=== PATIENT | male | born 1940 | race Caucasian/White ===

== ENCOUNTER 2016-06-25 19:15 | Inpatient (IN) | payer OTHER ==
--- NOTE | ~2016-06-25 | DS ---
Unit #: [id number] #: [id number] Patient: SHERIN PUGH [id number] [address] [address] [id number] I MR#: [id number] NAME: SHERIN PUGH. ROOM: 578 Age: 75 Sex: M Admission Date: 06/25/2016 : 1940 Discharge Date: 06/26/2016 Attending Physician: Stanley Joseph M.D. Primary Care Physician: No Primary Care Physician DISCHARGE SUMMARY SHORT STAY SUMMARY DISCHARGE DIAGNOSES 1. Acute exacerbation of chronic obstructive pulmonary disease. 2. Tachycardia secondary to number one. 3. Chronic respiratory failure with oxygen at home. 4. Hyperlipidemia. 5. Benign prostatic hypertrophy. DISCHARGE MEDICATIONS 1. Advair 250 mcg one puff twice a day. 2. DuoNeb mini neb as needed. 3. ProAir inhaler as needed. 4. Flomax 0.4 mg a day. 5. Pravachol 20 mg at bedtime. 6. Aspirin 81 mg a day. 7. Prednisone 40 mg a day for five days. 8. Zithromax 250 mg a day for four more days. DIET As tolerated. ACTIVITY Oxygen 24 hours a day which he has at home. DESCRIPTION OF HOSPITALIZATION The patient is a 75-year-old gentleman who was at Dr. West' office for routine checkup and was found to be tachycardiac. He did note that two days prior to admission he had mowed his grass and had increasing mucopurulent sputum production. There was no chest pain, fever or hemoptysis. He denied any wheezing. He does have shortness of breath, primarily dyspnea on exertion, which he thinks is fairly stable, and he denies chest pain. He feels much better and now is actually asking for discharge. PAST MEDICAL HISTORY COPD, chronic respiratory failure, hyperlipidemia, benign prostatic hypertrophy. He denies any heart disease whatsoever. SOCIAL HISTORY He quit smoking approximately 10 years ago. FAMILY HISTORY No familial lung disease. Unit #: [id number] #: [id number] Patient: SHERIN PUGH ALLERGIES No known medical allergies. MEDICATIONS As above. REVIEW OF SYSTEMS He is better. He really denies any acute pulmonary symptoms. His sputum has resolved. He denies chest pain, palpitations, never noticed any tachycardia. No abdominal pain, melena, hematochezia, trouble swallowing. No hematuria, dysuria, focal weakness, paraesthesias, leg pain, swelling, fever, chills, weight loss. Further review of systems negative. PHYSICAL EXAMINATION GENERAL APPEARANCE: Reveals a patient who is comfortable on his home level of oxygen. He is afebrile. VITAL SIGNS: Pulse is 100 when I examined him. It has ranged from 102 to 113. Respiratory rate 14. Blood pressure 144/86. Height 5'6". Weight 128 lb. HEENT: Pupils equal, round, and reactive to light. Sclerae anicteric. Head: Atraumatic. NECK: Supple. No supraclavicular or cervical adenopathy appreciated. CHEST: Rare wheeze. No consolidation. Decreased breath sounds. CARDIAC: Regular rate and rhythm. When I examined him, his pulse was approximately 95. No murmur. ABDOMEN: Soft, nontender. No hepatomegaly or rebound. EXTREMITIES: No clubbing, cyanosis or edema. No calf tenderness. SKIN: Warm and dry without rash or diaphoresis. NEUROLOGIC: Grossly intact. No focal muscle or sensory deficits. DIAGNOSTIC STUDIES LABORATORY: Arterial blood gas not performed. He had a normal CMP. His BNP was 36. Lactic acid was normal at one. INR normal. Cardiac enzymes normal. CBC normal. Urinalysis: Glucosuria, otherwise, unremarkable. Blood cultures are pending. Sputum does show gram-positive cocci pairs, gram-positive cocci in clusters and a few gram-negative rods. He has clinically responded to Zithromax. IMAGING: Chest x-ray: Emphysema. No acute infiltrates. CARDIOVASCULAR: EKG: Sinus tachycardia at 105, one PVC, no acute ischemic changes. IMPRESSION 1. Acute exacerbation of COPD. 2. Tachycardia secondary to number one and increased beta agonist use. 3. Chronic respiratory failure, possibly some mild acute component as saturations were listed at 89% on four liters. He is usually on three liters at home. 4. Hyperlipidemia. 5. Benign prostatic hypertrophy. PLAN Basically, as above. He has received treatment. He actually is asking for discharge. He will be discharged later today if stable. We will ensure that he is on his home level of oxygen. He will be followed up in the office in two weeks by our nurse practitioner and Dr. West in three Unit #: [id number] #: [id number] Patient: SHERIN PUGH to four weeks or as scheduled. Certainly, if tachycardia persists after this exacerbation, he may need further evaluation such as thyroid function, echocardiogram, etc. Dictated by... Yee Purcell TD: 06/26/2016 09:46 JOB #: [id number] CC: Kaz West M.D. DISCHARGE SUMMARY Page 1 of 1 X Stanley Joseph MD X DISCHARGE SUMMARY
--- NOTE | ~2016-06-25 | EKG ---
PATIENT: SHERIN PUGH UNIT #: [id number] Ventricular Rate: 105 BPM Atrial Rate: 105 BPM P-R Interval: 174 ms QRS Duration: 86 ms Q-T Interval: 332 ms QTC Calculation(Bezet): 438 ms P [place]: 28 degrees Calculated R [place]: -68 degrees Calculated T [place]: 57 degrees Diagnosis Line: Sinus tachycardia with occasional Premature Diagnosis Line: ventricular complexes Diagnosis Line: Left axis deviation Diagnosis Line: Pulmonary disease pattern Diagnosis Line: Abnormal ECG Diagnosis Line: When compared with ECG of 16-FEB-2015 17:03, Diagnosis Line: Premature ventricular complexes are now Present Diagnosis Line: Criteria for Inferior infarct are no longer Diagnosis Line: Present Diagnosis Line: Confirmed by YOSEPH PARIKH MD ([id number]) on 06/28/2016 Diagnosis Line: 4:00:40 PM INTERPRETING MD: JL HAMMONDS
--- NOTE | ~2016-06-25 | CR72 ---
[facility] A Service of [facility] RADIOLOGY TEXT RESULTS PATIENT: SHERIN PUGH LOCATION: [facility] 578-01 : 41 UNIT #: [id number] AGE: [address]: Stanley Joseph MD SEX: M ORDER DR: [id number] [facility] [address] [facility] [place], [place] [address] [id number] MR#: [id number] Acc #: [id number] NAME: SHERIN PUGH. : 1940 SEX: M STUDY DATE/TIME: 06/25/2016 18:24 UNIT: ARNULFO ROOM: STUDY DESCRIPTION: CR Chest Single View Portable Attending Physician: Yaron Meza M.D. Ordering Physician: Yaron Meza M.D. MEDICAL IMAGING REPORT This report is preliminary unless electronic signature is present EXAM AP radiograph of the chest 06/25/2016 HISTORY Shortness of air, duration today. TECHNIQUE AP radiograph of the chest is presented. COMPARISON STUDIES 01/02/2016. FINDINGS No acute appearing bony abnormality. Heart, mediastinum normal in size and contour. Marked hyperinflation of the lungs consistent with underlying COPD. Coarse linear densities in the mid- to lower lung zones bilaterally, most pronounced at the lung bases, likely reflect underlying emphysematous change and fibrotic change. There is no compelling evidence of superimposed acute infectious or inflammatory disease, pleural effusion or pneumothorax. There is no suspicious nodule. Calcified granuloma in the right lower lung zone is unchanged. Dictated by... Nash Feng M.D. THIS IS AN ELECTRONICALLY VERIFIED REPORT Nash Feng M.D. at 06/26/2016 6:48 PM RICKI/sumaya TD: 06/25/2016 22:02 JOB #: [id number] [facility] A Service [facility] RADIOLOGY TEXT RESULTS PATIENT: SHERIN PUGH LOCATION: [facility] 578-01 : 41 UNIT #: [id number] AGE: [address]: Stanley Joseph MD SEX: M ORDER DR: MEDICAL IMAGING REPORT Page 1 of 1 COPY
[2016-06-25 18:41] LABS: BASOPHIL# 0.1 X10e3 (0-0.3); EOSINOPHIL# 0.6 X10e3 (0-0.7); EOSINOPHIL% 7.4 % (0.0-7.0); HEMATOCRIT 44.3 % (38.0-50.0); HEMOGLOBIN 14.3 gm/dL (13.0-16.0); LYMPHOCYTE# 1.8 X10e3 (1.0-3.5); LYMPHOCYTE% 23.8 % (17.0-45.0); MEAN CELL VOLUME 91.4 FL (83-96); MEAN CORPUSCULAR HEMOGLOBIN 29.5 PG (28-34); MEAN CORPUSCULAR HGB CONC 32.2 g/dL (30-36); MEAN PLATELET VOLUME 9.9 FL (6.5-11.5); MONOCYTE# 0.7 X10e3 (0-1.0); MONOCYTE% 8.9 % (3.0-12.0); NEUTROPHIL# 4.5 X10e3 (1.5-7.1); NEUTROPHIL% 58.9 % (40-75); PLATELET COUNT 143 X10e3 (140-420); RED BLOOD COUNT 4.85 X10e (3.90-5.60); RED CELL DISTRIBUTION WIDTH 14.9 % (11.0-15.5); WHITE BLOOD COUNT 7.6 X10e3 (4.0-10.5)
[2016-06-25 18:41] LABS: POC - CKMB 2.5 ng/mL (0.0-7.9); POC - TROPONIN <0.05 ng/mL (<=0.05)
[2016-06-25 18:45] LABS: DIFF IND NO
[2016-06-25 18:49] LABS: PARTIAL THROMBOPLASTIN TIME 28.6 SECONDS (23.5-31.3); PROTHROMBIN TIME (PATIENT) 10.6 SECONDS (9.6-11.5)
[2016-06-25 19:04] LABS: BILIRUBIN, DIRECT 0.1 mg/dL (0.0-0.2); BILIRUBIN,INDIRECT 0.7 mg/dL (0.0-0.9); BILIRUBIN,TOTAL 0.8 mg/dL (0.2-2.0); BUN/CREATININE RATIO 17.5; CALCIUM SERUM 9.1 mg/dL (8.4-10.2); CREATININE SERUM 0.8 mg/dL (0.6-1.4); PHOSPHOROUS 2.9 mg/dL (2.5-4.6); POTASSIUM 3.7 mmol/L (3.5-5.1); PROTEIN TOTAL SERUM 7.3 g/dL (6.0-8.3)
[~2016-06-25 19:15] MED LIST: ADVAIR 250-501 EAC1 INH; BAYER CHEWABLE81 MG PO; BREO ELLIPTA I1 EACH INH; CIPRO PO; COLACE PO; COMBIVENT U/D3 M2 INH; DILTIAZEM HCL120 MG PO; FLOMAX0.4 M1 PO; IPRAT-ALBUT 0.5-3 ML INH; LEVAQUIN750 MG PO; LORTAB 5-325 M1 EACH PO; MIRALAX17 G2 PO; OXYGEN; PRAVACHOL20 MG PO; PREDNISONE10 MG PO; PREDNISONE10 MG/DOSE PO; PROAIR HFA8.5 GM INH; ST. JOSEPH ASPI81 M2 PO; SYMBICORT INH; TYLENOL325 M1 PO
[2016-06-25 20:37] LABS: POC - CKMB 1.8 ng/mL (0.0-7.9); POC - TROPONIN <0.05 ng/mL (<=0.05)
[2016-06-26 06:40] LABS: URINE SOURCE CLEAN CATCH
[2016-06-26 06:50] LABS: URINE APPEARANCE CLEAR; URINE BILIRUBIN NEG (NEG); URINE BLOOD NEG (NEG); URINE COLOR YELLOW; URINE GLUCOSE >1000 MG/DL (NEG); URINE KETONE 1+ (NEG); URINE LEUKOCYTE ESTERASE NEG (NEG); URINE NITRATE NEG (NEG); URINE PROTEIN NEG (NEG); URINE SPECIFIC GRAVITY 1.023 (1.003-1.035)
[2016-06-26 06:52] LABS: CULTURE INDICATED? NO
[2016-06-26] MEDS ORDERED: AZITHROMYCIN250 MG PO (11:09)
[2016-06-26] MEDS ORDERED: DELTASONE20 MG PO (11:11)
== END 2016-06-26 12:12 | disposition home or self-care (01) | DRG 191 ==
LOC: CED 19:15 → CEDOF 21:54 → C5C 06-26 08:50
PROVIDERS: Emergency Medicine
DX: J44.1 Chronic obstructive pulmonary disease with (acute) exacerbation (principal); J96.10 Chronic respiratory failure, unspecified whether with hypoxia or hypercapnia; Z99.81 Dependence on supplemental oxygen; E78.5 Hyperlipidemia, unspecified; N40.0 Benign prostatic hyperplasia without lower urinary tract symptoms; Z87.891 Personal history of nicotine dependence
CPT/HCPCS: 36415; 71010; 80048; 80076; 81003; 82150; 82553; 83605; 83690; 83735; 83880; 84100; 84484; 85025; 85610; 85730; 87040; 87070; 87205; 93005; 94640; 94644; 96361; 96374; 99285; C9113; J2920; J2930